=== PATIENT | male | born 1990 | race African-American/Black ===

== ENCOUNTER 2020-05-16 16:41 | Emergency (ER) | payer SELFPAY ==
[~2020-05-16] VITALS: Ht 172.7 cm; Wt 88.9 kg
[2020-05-16 16:48] VITALS: Ht 172.7 cm; Wt 88.9 kg
[2020-05-16 18:03] VITALS: BP 114/80
== END 2020-05-16 18:03 | disposition home or self-care (01) ==
LOC: ED 16:41
DX: J45.909 Unspecified asthma, uncomplicated (principal); R53.83 Other fatigue; R11.10 Vomiting, unspecified